=== PATIENT | male | born 1965 | race Caucasian/White ===

== ENCOUNTER 2018-10-25 07:01 | Emergency (ER) | payer MEDICAID ==
[~2018-10-25] VITALS: Ht 177.8 cm; Wt 83.9 kg
[2018-10-25] MEDS ORDERED: ALBUTEROL FS 2.5 MG/3 ML VIAL.NEB ONE (07:28)
[2018-10-25] MEDS ORDERED: IPRATROPIUM NEB FS 0.5 MG/2.5 ML AMPUL.NEB ONE (07:29)
[2018-10-25] MEDS ORDERED: ALBUTEROL FS 2.5 MG/3 ML VIAL.NEB NEB ONE ×2 (07:30→09:00)
[2018-10-25] MEDS ORDERED: LORAZEPAM 1 MG TABLET PO ONE ×2 (07:30→12:30)
[2018-10-25] MEDS ORDERED: predniSONE 20 MG TABLET PO ONE (07:30)
[2018-10-25] MEDS ORDERED: IPRATROPIUM NEB FS 0.5 MG/2.5 ML AMPUL.NEB NEB ONE (07:30)
[2018-10-25] MEDS ORDERED: ONDANSETRON 4 MG TAB.RAPDIS SL ONE (07:30)
[2018-10-25] MEDS ORDERED: PANTOPRAZOLE 80 MG in IV NS 0.9% 500 ML IV ONE (09:00)
[2018-10-25 09:15] LABS: BASOPHILS % (AUTO) 0.2 % (0.0-2.0); EOSINOPHILS % (AUTO) 0.4 % (0.0-6.0); HEMATOCRIT 49 % (39-51); HEMOGLOBIN 16.7 g/dL (13.5-17.5); LYMPHOCYTES # (AUTO) 0.7 /CMM (0.8-4.8); MEAN CORPUSCULAR HGB CONC 34 g/dl (31.0-36.0); MEAN CORPUSCULAR VOLUME 95 fL (80-96); MONOCYTES # (AUTO) 0.8 /CMM (0.1-1.30); MONOCYTES % (AUTO) 3.6 % (2.0-12.0); NEUTROPHILS # (AUTO) 20.9 /CMM (1.8-8.9); NEUTROPHILS % (AUTO) 92.8 % (43.0-81.0); PLATELET COUNT (AUTO) 213 /CMM (150-450); WHITE BLOOD COUNT (AUTO) 22.5 K/uL (4.3-11.0)
[2018-10-25] MEDS ORDERED: LORAZEPAM 1 MG TABLET ONE ×2 (09:18→12:51)
[2018-10-25] MEDS ORDERED: Magnesium 1GM/D5W 100ML PREMIX 100 ML IV ONE ×2 (09:18→10:25)
[2018-10-25] MEDS ORDERED: ONDANSETRON 4 MG TAB.RAPDIS ONE (09:19)
[2018-10-25] MEDS ORDERED: predniSONE 20 MG TABLET ONE (09:19)
[2018-10-25] MEDS: Magnesium 1GM/D5W 100ML PREMIX 100 ML IV SCH ×2 (09:21→10:26)
[2018-10-25 09:22] LABS: CALCIUM, SERUM 8.6 mg/dL (8.5-10.1); CREATININE 1.3 mg/dL (0.6-1.3); POTASSIUM 4.1 mmol/L (3.5-5.1)
--- NOTE | 2018-10-25 09:40 | NUR ---
PT BROUGHT IN FROM STREET FOR SOB OF SEVERAL DAYS PT ALERT AND ORIENTED SMELLS OF ETOH PIV PLACED MEDICATION GIVEN ORDERED WILL CONTINUE TO MONITOR
[2018-10-25 10:44] LABS: ALBUMIN 4.1 g/dL (3.4-5.0); BILIRUBIN,DIRECT 0.4 mg/dL (0.0-0.2); BILIRUBIN,TOTAL 1.7 mg/dL (0.2-1.0); TOTAL PROTEIN, SERUM 7.5 g/dL (6.4-8.2)
[2018-10-25] MEDS ORDERED: IV NS 0.9% 1,000 ML BAG IV ONE (11:00)
[2018-10-25] MEDS ORDERED: ONDANSETRON HCL/PF 4 MG/2 ML VIAL IV ONE (11:00)
[2018-10-25] MEDS ORDERED: ONDANSETRON HCL/PF 4 MG/2 ML VIAL ONE (11:20)
[2018-10-25 13:02] VITALS: BP 170/88
--- NOTE | 2018-10-25 13:02 | NUR ---
PT DISCHARGED TO HOME GIVEN PRESCRIPTIONS ACI AND ETOH ABUSE RESOURCES. PIV REMOVED WITH TIP INTACT. PT WILL FOLLOW UP WITH PCP
== END 2018-10-25 13:03 | disposition home or self-care (01) ==
LOC: ER 07:03
DX: J45.901 Unspecified asthma with (acute) exacerbation (principal); K70.9 Alcoholic liver disease, unspecified; E88.89 Other specified metabolic disorders; F10.20 Alcohol dependence, uncomplicated; E87.2 Acidosis; D72.829 Elevated white blood cell count, unspecified
CPT/HCPCS: 36415; 71045; 80048; 80076; 80307; 85025; 93005; 94644; 96365; 96366; 96368; 96375; 99285; C9113; J2405; J3475 ×2; J7030; J7040; J7512; Q0162; G0480

== ENCOUNTER 2018-10-27 03:59 | Emergency (ER) | payer MEDICAID ==
[~2018-10-27] VITALS: Ht 177.8 cm; Wt 90.7 kg
--- NOTE | 2018-10-27 04:05 | NUR ---
PT BIB RA WITH A C/O SOB, ETOH. PT IS HOMELESS. PT STATED THAT HE LIVES IN HIS CROSSNORE. PT IS ON THE MONITOR AND CONTINUOUS PULSE OX. PT'S O2 SAT ON RA IS 94%. PT IS ABLE TO SPEAK IN FULL SENTENCES.
[2018-10-27] MEDS ORDERED: DEXAMETHASONE SOD PHOSPHATE 10 MG/ML VIAL ONE (04:07)
[2018-10-27] MEDS ORDERED: IPRATROPIUM NEB FS 0.5 MG/2.5 ML AMPUL.NEB ONE (04:18)
[2018-10-27] MEDS ORDERED: ALBUTEROL FS 2.5 MG/3 ML VIAL.NEB ONE (04:18)
[2018-10-27] MEDS ORDERED: DEXAMETHASONE SOD PHOSPHATE 10 MG/ML VIAL IM ONE (04:30)
[2018-10-27] MEDS ORDERED: IPRATROPIUM NEB FS 0.5 MG/2.5 ML AMPUL.NEB NEB ONE (04:30)
[2018-10-27] MEDS ORDERED: ALBUTEROL FS 2.5 MG/3 ML VIAL.NEB NEB ONE (04:30)
[2018-10-27 04:32] VITALS: BP 140/74
--- NOTE | 2018-10-27 04:57 | NUR ---
Patient discharged to home in stable condition. Written and verbal after care instructions given. Patient verbalizes understanding of instruction AND RX. PT AMBULATED OUT WITH A STEADY GAIT. PT IS UPSET AND STATED THAT HE WAS NOT HOMELESS. PT ASKED FOR A TAXI.
[2018-10-27] MEDS ORDERED: ALBUTEROL SULFATE 8 GM HFA.AER.AD IH ONE (05:00)
[2018-10-28] MEDS ORDERED: BUDE10.2 INH (19:33)
[2018-10-28] MEDS ORDERED: ATOR80TA PO (19:33)
[2018-10-28] MEDS ORDERED: IPRA4AER IH (19:33)
[2018-10-28] MEDS ORDERED: ALBU18HF2 INH (19:33)
== END 2018-10-27 04:54 | disposition home or self-care (01) ==
LOC: ER 04:01
DX: J44.1 Chronic obstructive pulmonary disease with (acute) exacerbation (principal); F17.200 Nicotine dependence, unspecified, uncomplicated; Z59.0 Homelessness
CPT/HCPCS: 93005; 94640; 96372; 99283; J1100

== ENCOUNTER 2018-10-28 15:01 | Inpatient (IN) | payer MEDICAID ==
[~2018-10-28] VITALS: Ht 177.8 cm; Wt 89.9 kg
--- NOTE | 2018-10-28 15:08 | NUR ---
PT BIB[employer] AND [employer], IN CUSTODY FOR DUI, C/O WHEEZING, PT IS AAOX4, NOTED WHEEZING ON BILATERAL LUNG SAVAGE, KEPT RESTED AND COMFORTABLE, WILL CONTINUE TO MONITOR.
--- NOTE | 2018-10-28 15:18 | NUR ---
SEEN AND EXAMINED BY IKE CONTE
--- NOTE | 2018-10-28 15:25 | NUR ---
LABS DRAWNED AND SENT TO LAB.
[2018-10-28] MEDS ORDERED: methylPREDNISolone SOD SUCC 125 MG/2ML VIAL ONE (15:27)
[2018-10-28 15:29] LABS: BASOPHILS % (AUTO) 0.1 % (0.0-2.0); HEMATOCRIT 45 % (39-51); HEMOGLOBIN 15.1 g/dL (13.5-17.5); LYMPHOCYTES # (AUTO) 1.3 /CMM (0.8-4.8); LYMPHOCYTES % (AUTO) 6.5 % (20.0-44.0); MEAN CORPUSCULAR HGB CONC 34 g/dl (31.0-36.0); MEAN CORPUSCULAR VOLUME 95 fL (80-96); MONOCYTES # (AUTO) 1.3 /CMM (0.1-1.30); MONOCYTES % (AUTO) 6.3 % (2.0-12.0); NEUTROPHILS # (AUTO) 17.5 /CMM (1.8-8.9); NEUTROPHILS % (AUTO) 87.1 % (43.0-81.0); PLATELET COUNT (AUTO) 172 /CMM (150-450); RED BLOOD CELL COUNT(AUTO) 4.71 MIL/uL (4.5-6.0)
[2018-10-28] MEDS ORDERED: ALBUTEROL FS 2.5 MG/3 ML VIAL.NEB ONE (15:29)
[2018-10-28] MEDS ORDERED: IPRATROPIUM NEB FS 0.5 MG/2.5 ML AMPUL.NEB ONE (15:29)
[2018-10-28] MEDS ORDERED: IPRATROPIUM NEB FS 0.5 MG/2.5 ML AMPUL.NEB NEB ONE (15:30)
[2018-10-28] MEDS ORDERED: methylPREDNISolone SOD SUCC 125 MG/2ML VIAL IV ONE (15:30)
[2018-10-28] MEDS ORDERED: ALBUTEROL FS 2.5 MG/3 ML VIAL.NEB NEB ONE (15:30)
--- NOTE | 2018-10-28 15:30 | NUR ---
RT AT BEDSIDE FOR BREATHING TREATMENT.
[2018-10-28 15:35] LABS: CALCIUM, SERUM 8.6 mg/dL (8.5-10.1); CARBON DIOXIDE 25 mmol/L (21-32); CHLORIDE 94 mmol/L (98-107); CREATININE 1.1 mg/dL (0.6-1.3); GLUCOSE 197 mg/dL (74-106); POTASSIUM 3.8 mmol/L (3.5-5.1); SODIUM SERUM 134 mmol/L (136-145); UREA NITROGEN, BLOOD 11 mg/dL (7-18)
--- NOTE | 2018-10-28 15:45 | NUR ---
CALLED FOR FOOD TRAY
[2018-10-28 15:47] LABS: ALANINE AMINOTRANSFERASE 117 U/L (12-78); ALBUMIN 3.6 g/dL (3.4-5.0); ALKALINE PHOSPHATASE 86 U/L (46-116); ASPARTATE AMINOTRANSFERASE 84 U/L (15-37); B-TYPE NATRIURETIC PEPTIDE 317 PG/ML (0-125); BILIRUBIN,DIRECT 0.2 mg/dL (0.0-0.2); BILIRUBIN,TOTAL 0.5 mg/dL (0.2-1.0); TOTAL PROTEIN, SERUM 6.9 g/dL (6.4-8.2)
--- NOTE | 2018-10-28 16:44 | NUR ---
CALLED NURSING SUP. FOR TELE BED
--- NOTE | 2018-10-28 16:49 | NUR ---
ZAY PAGED, GI BROOKS MOTOR RUNNER AVIATION TECHNICIAN
--- NOTE | 2018-10-28 17:17 | NUR ---
GI BROOKS MASK DESIGNER AT BEDSIDE FOR EVAL.
--- NOTE | 2018-10-28 17:45 | NUR ---
REPORT GIVEN TO KAY ALLEN FOR MAMI.
--- NOTE | 2018-10-28 17:51 | NUR ---
RECEIVED REPORT FROM BYRON REGARDING PATIENT. PATIENT IS BEING ADMITTED TO TELEMETRY FLOOR BY GI BROOKS NP. AWAITING PATIENT'S ARRIVAL AT THIS TIME.
[2018-10-28] MEDS ORDERED: MAGNESIUM HYDROXIDE 30 ML UDC PO PRN (18:00)
[2018-10-28] MEDS ORDERED: MAG HYDROX/AL HYDROX/SIMETH 30 ML UDC PO PRN (18:00)
[2018-10-28] MEDS ORDERED: Z GUARD REMEDY 2 OZ OINT TP PRN (18:00)
[2018-10-28] MEDS ORDERED: LORAZEPAM INJ 2 MG/ML VIAL IV PRN (18:00)
[2018-10-28] MEDS ORDERED: ACETAMINOPHEN 325 MG TABLET PO PRN (18:00)
[2018-10-28] MEDS ORDERED: ONDANSETRON HCL/PF 4 MG/2 ML VIAL IVP PRN (18:00)
[2018-10-28] MEDS ORDERED: PIPERACILLIN /TAZOBACTAM 3.375 G in IV D5W 50 ML IV ONE (18:30)
--- NOTE | 2018-10-28 18:35 | NUR ---
BEVEL FACE STONER AND POLISHER NOTE RECEIVED PATIENT FROM ER. PATIENT IS BEING ADMITTED TO TELEMETRY FLOOR IN STABLE CONDITION, AMBLE TO INDEPENDENTLY TRANSFER FROM [facility] TO BED. VITAL SIGNS STABLE. IN NO APPARENT DISTRESS OR DISCOMFORT AT THIS TIME. RESPIRATIONS EVEN AND UNLABORED. DENIES PAIN AND SOB. PATIENT REPORTS FEELING ANXIOUS INSIDE. ABLE TO COMMUNICATE NEEDS. IV ACCESS PRESENT ON RIGHT HAND 18G, PATENT AND INTACT. PATIENT WAS MADE COMFORTABLE IN BED. SAFETY MEASURES APPLIED, BED IN LOW LOCKED POSITION, SIDE RAILS UP X2, ORIENTED TO CALL LIGHT AND ROOM. GI BROOKS NP WAS MADE AWARE OF PATIENT'S ARRIVAL. WILL ENDORSE TO PM NURSE FOR MAMI AND TO CARRY OUT ADMISSION ORDERS.
--- NOTE | 2018-10-28 19:00 | NUR ---
PER TODD LADD, KEEP PATENT NPO STARTING NOW. NOTED AND CARRIED OUT.
[2018-10-28] MEDS ORDERED: ALBU18HF2 INH (19:33)
[2018-10-28] MEDS ORDERED: ATOR80TA PO (19:33)
[2018-10-28] MEDS ORDERED: IPRA4AER IH (19:33)
[2018-10-28] MEDS ORDERED: BUDE10.2 INH (19:33)
--- NOTE | 2018-10-28 19:55 | NUR ---
MEDIA TRAFFIC MANAGER TELE NOTES RECEIVED PATIENT FROM [facility] [employer] FOR CONTINUATION OF ADMISSION PROCESS. PATIENT IS A/O X4. PATIENT IS ON TELE MONITOR WITH READING: SINUS TACH 110 AT THIS TIME. VITAL SIGNS UPON START OF SHIFT WAS BP 151/89, PULSE 112, RESPIRATORY RATE 19, TEMPERATURE 98.9, OXYGEN SATURATION 95. PATIENT DENIES PAIN AND SOB. PATIENT IS ABLE TO COMMUNICATE NEEDS. SAFETY PRECAUTIONS IMPLEMENTED: BED IN LOW LOCKED POSITION, SIDE RAILS UP X2, ORIENTED TO CALL LIGHT AND ROOM. WILL CONTINUE TO MONITOR PATIENT THROUGHOUT THE SHIFT.
--- NOTE | 2018-10-28 20:00 | NUR ---
RN NOTES: INVENTORY OF BELONGING COMPLETED BY NETO HERNANDEZ. PT HAS SHIRT (GARG COLOR), PANTS, BELT, BLACK SHOES. INFORMED PT HE'S NPO, PT AGREE, BUT WILL RECEIVE FLUIDS (IVF). SKIN ASSESSMENT PERFORMED, NOTED SACRAL WOUND, PARTIAL THICKNESS, PT REFUSED TO TAKE PHOTOS STATED ITS UNCOMFORTABLE AND UNEASY. NOTED SCRATCHED ON BILATERAL ARMS, PT CLAIMED HE GOT THIS FROM HIS CAT. ON SEIZURE PRECAUTIONS, SIDE RAILS PADDED, SUCTION SET UP SECURED, WILL CONTINUE MONITORING PT.
--- NOTE | 2018-10-28 20:02 | NUR ---
rn notes: oriented pt to unit policy, hourly rounding and use of call light system
[2018-10-28] MEDS: ALBUTEROL FS 2.5 MG/0.5 ML VIAL.NEB NEB SCH (20:04)
[2018-10-28] MEDS: IPRATROPIUM NEB FS 0.5 MG/2.5 ML AMPUL.NEB NEB SCH (20:04)
[2018-10-28] MEDS: Folic acid 1 MG in IV D5W 50 ML IV SCH (20:07)
[2018-10-28] MEDS: IV NS 0.9% 1,000 ML IV PRN (20:07)
--- NOTE | 2018-10-28 20:07 | NUR ---
LATE ADMIN FOLIC ACID IVPB: ADMINISTERING THE SAID MEDICATION AT THIS TIME, MEDICATION BROUGHT BY PHARMACY, DAY RN UNAVAILABLE TO ADMIN THE MED AT SCHEDULED TIME.
[2018-10-28 20:25] VITALS: BP 151/89
[2018-10-28] MEDS: Thiamine 100 MG in IV D5W 50 ML IV SCH (20:53)
[2018-10-28 21:06] VITALS: BP 152/87
--- NOTE | 2018-10-28 21:06 | NUR ---
RN/TELE NOTES PRN ATIVAN GIVEN. PATIENT EXPERIENCING AGITATION, TREMORS, SWEATING. CURRENT VITAL SIGNS: BP 152/87, PULSE 111, RESPIRATORY RATE 19, O2 STAT 95% CONNECTED PATIENT TO CONTINOUS OXIMETRY.
--- NOTE | 2018-10-28 21:50 | NUR ---
rn notes: pt's iv accidentally pulled out, removed and applied pressured dressing. reinserted new iv on left fa using g 20, good blood return noted, secured with transparent dressing and attached proper labels, connected back to ivf. also unable to give ativan as iv access got pulled out, prepared ativan 2mg just administered now. vs taken and recorded, pt connected back to continuous pulse oximetry, spo2 95% on 2l nc.
--- NOTE | 2018-10-28 22:17 | NUR ---
late admin of zosyn: medication administered late as day rn unable to give the said medicine at scheduled time. given thiamine and folic ivpb, also pt's iv access got pulled out, all this delays the administration of the said medication
[2018-10-28 22:19] VITALS: BP 152/89
[2018-10-29] VITALS: BP_SYST 159; BP_SYST 160; BP_DIAS 76; BP_DIAS 80
--- NOTE | 2018-10-29 01:15 | NUR ---
RN NOTES: RECEIVED CALL FROM FLASH DRIER OPERATOR AIRTO, STATED HR WENT UP TO 122, SINUS TACHYCARDIA, WENT TO CHECK ON THE PT, PT DENIES ANY HEAD ACHE, DIZZINESS OR LIGHT HEADEDNESS, DENIES ANY CHEST PAIN, ASYMPTOMATIC, ON 2L OXYGEN VIA NC, RESPIRATION EVEN AND UNLABORED, STILL CONNECTED TO PULSE OXIMETRY.
[2018-10-29 02:00] VITALS: BP 155/87
[2018-10-29] MEDS: ALBUTEROL FS 2.5 MG/0.5 ML VIAL.NEB NEB SCH ×4 (02:14→20:01)
[2018-10-29] MEDS: IPRATROPIUM NEB FS 0.5 MG/2.5 ML AMPUL.NEB NEB SCH ×4 (02:14→20:01)
--- NOTE | 2018-10-29 02:42 | NUR ---
PT REFUSED TO GO ON BIPAP. PT WANTS HOME BIPAP. RN AWARE Addendum: 10/29/18 at 0443 by EVELIO GRIFFITH RT Amended: Links added.
[2018-10-29 04:00] VITALS: BP 153/93
[2018-10-29] MEDS ORDERED: PIPERACILLIN /TAZOBACTAM 3.375 G VIAL IV ONE (04:48)
[2018-10-29] MEDS ORDERED: PIPERACILLIN /TAZOBACTAM 3.375 G in IV D5W 100 ML IV SCH (05:00)
[2018-10-29 06:52] LABS: CALCIUM, SERUM 8.7 mg/dL (8.5-10.1); CREATININE 1.1 mg/dL (0.6-1.3); POTASSIUM 4.2 mmol/L (3.5-5.1)
--- NOTE | 2018-10-29 07:02 | NUR ---
MS RN NOTES PATIENT IN BED ALERT ORIENTED X 4. NO ACUTE DISTRESS NOTED. BREATHING UNLABORED. IV ACCESS PATENT AND INTACT, NO REDNESS OR SWELLING NOTED. SAFETY MEASURES IN PLACE. CALL LIGHT WITHIN REACH. WILL CONTINUE TO MONITOR ACCORDINGLY.
[2018-10-29 07:07] LABS: BASOPHILS % (AUTO) 0.1 % (0.0-2.0); HEMATOCRIT 40 % (39-51); HEMOGLOBIN 13.9 g/dL (13.5-17.5); LYMPHOCYTES # (AUTO) 0.7 /CMM (0.8-4.8); MEAN CORPUSCULAR HGB CONC 35 g/dl (31.0-36.0); MEAN CORPUSCULAR VOLUME 95 fL (80-96); MONOCYTES # (AUTO) 0.6 /CMM (0.1-1.30); MONOCYTES % (AUTO) 3.9 % (2.0-12.0); NEUTROPHILS # (AUTO) 13.6 /CMM (1.8-8.9); PLATELET COUNT (AUTO) 126 /CMM (150-450)
[2018-10-29 07:18] LABS: THYROID STIMULATING HORMONE 0.228 uIU/mL (0.358-3.74)
--- NOTE | 2018-10-29 07:31 | NUR ---
RN CLOSING NOTES PATIENT IS IN BED, AWAKE. PATIENT IS A/O X 4. PATIENT HAS NO SIGNS OF RESPIRATORY DISTRESS. PATIENT DENIES PAIN. IV SITE: LEFT FOREARM G#20, PATENT AND INTACT. URINAL WITHIN REACH. SAFETY PRECAUTIONS IMPLEMENTED: CALL LIGHT WITHIN REACH, BED LOW, SIDERAILS UP X2, BED LOCKED. ON SEIZURE PRECAUTIONS, SIDE RAILS PADDED, SUCTION SET UP SECURED. WILL ENDORSE TO ONCOMING AM RN.
[2018-10-29 08:00] VITALS: BP 164/90
[2018-10-29] MEDS: NICOTINE PATCH (14MG) 14 MG PATCH.TD24 TD SCH (08:38)
[2018-10-29] MEDS ORDERED: methylPREDNISolone SOD SUCC 40 MG/ML VIAL IV ONE (09:00)
[2018-10-29] MEDS ORDERED: LORAZEPAM INJ 2 MG/ML VIAL IV PRN (10:00)
--- NOTE | 2018-10-29 10:03 | NUR ---
LOG HANDLING EQUIPMENT OPERATOR NOTES RECEIVED NEW ORDERS FROM SUPERVISOR COMMISSARY PRODUCTION GI BROOKS TO DISCONTINUE NPO MAY CHANGE TO CLEAR LIQUID DIET AND MAY ADMINISTER 9AM SCHEDULED LIBRIUM.NOTED AND CARRIED OUT.
[2018-10-29] MEDS: CHLORDIAZEPOXIDE HCL 5 MG CAPSULE PO SCH ×3 (10:08→17:26)
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
[2018-10-29] MEDS: PIPERACILLIN /TAZOBACTAM 3.375 G in IV D5W 100 ML IV SCH ×2 (13:01→20:36)
--- NOTE | 2018-10-29 14:37 | NUR ---
MS RN NOTES PATIENT POSITIVE FOR MRSA OF THE NARES. CONTACT ISOLATION IMPLEMENTED. NOTIFIED LIBERAL ARTS DEAN GI MYERS WITH NEW ORDERS FOR BACTROBAN OINTMENT 2%. NOTED AND CARRIED OUT. PATIENT MADE AWARE.
[2018-10-29 16:00] VITALS: BP 144/82
[2018-10-29] MEDS: MUPIROCIN OINT 2% 22 GM TUBE SCH ×2 (16:09→20:43)
[2018-10-29] MEDS ORDERED: Medication Not On Formulary EA (Budesonide/Formoterol Fumarate (Symbicort 160-4.5 Mcg In INH SCH (17:00)
[2018-10-29] MEDS: Thiamine 100 MG in IV D5W 50 ML IV SCH (17:23)
[2018-10-29] MEDS: CLOTRIMAZOLE 1% 15 GM TUBE TP SCH (17:29)
[2018-10-29] MEDS: Folic acid 1 MG in IV D5W 50 ML IV SCH (18:03)
--- NOTE | 2018-10-29 19:00 | NUR ---
MS RN NOTES PATIENT IN BED ALERT ORIENTED X 4. NO ACUTE DISTRESS NOTED. BREATHING UNLABORED. IV ACCESS PATENT AND INTACT, NO REDNESS OR SWELLING NOTED.DUE MEDICATIONS GIVEN, NO ASE NOTED. NEEDS ATTENDED AND ANTICIPATED. KEPT CLEAN DRY AND COMFORTABLE. ENCOURAGE TURNING AND REPOSTIONING EVERY [address] ME[address] PL[address] CALL LIGHT WITHIN REACH. ENDORSED TO NIGHT NURSE FOR CONTINUITY OF CARE.
--- NOTE | 2018-10-29 19:30 | NUR ---
MS RN NOTES RECEIVED LAYING COMFORTABLY ON BED,A/0 X4,CONVERSANT,VERBALIZED NEEDS,IVF NS AT 75ML/HR RATE IN PROGRESS ON LEFT FORE ARM,SITE PATENT.NOTED LEFT ARM ABRASIONS,SACRAL REDNESS WITH DRESSING INTACT AND DRY,ABLE TO REPOSITION SELF,ISOLATION PRECAUTION FOR MRSA NARES,ON BACTROBAN.CALL LIGHT IN REACH,NEEDS ANTICIPATED.
[2018-10-29 20:00] VITALS: BP 132/68
--- NOTE | 2018-10-29 20:01 | NUR ---
MS RN NOTES RT AT BEDSIDE ADMINISTERING BREATHING TREATMENT SCHEDULED.
--- NOTE | 2018-10-30 01:30 | NUR ---
MS RN NOTES AWAKE,HAVING BREATHING TREATMENT SCHEDULED.
[2018-10-30] MEDS: ALBUTEROL FS 2.5 MG/0.5 ML VIAL.NEB NEB SCH ×4 (01:48→20:07)
[2018-10-30] MEDS: IPRATROPIUM NEB FS 0.5 MG/2.5 ML AMPUL.NEB NEB SCH ×4 (01:48→20:07)
[2018-10-30] MEDS: PIPERACILLIN /TAZOBACTAM 3.375 G in IV D5W 100 ML IV SCH ×2 (05:09→13:14)
--- NOTE | 2018-10-30 06:26 | NUR ---
MS RN NOTES RESTING COMFORTABLY ON BED,NO SOB,IV ABX IN PROGRESS AT 25ML/HR VIA IV PUMP.DENIES ANY DISCOMFORTS AT THIS TIME.BED ON LOWEST POSITION AND LOCKED.CALL LIGHT IN REACH,NEEDS ATTENDED.WILL ENDORSE TO DAY NURSE FOR MAMI.
--- NOTE | 2018-10-30 07:30 | NUR ---
MS/RN Patient received Patient received from shift foreman. A/O X4, vital signs stable, appears in no distress at this time. All needs attended, time allowed for all questions and concerns to be addressed. Call light within reach, will continue to monitor and ensure safety.
[2018-10-30 08:00] VITALS: BP_SYST 152; BP_DIAS 79; BP_DIAS 89
[2018-10-30] MEDS: NICOTINE PATCH (14MG) 14 MG PATCH.TD24 TD SCH (08:42)
[2018-10-30] MEDS: MUPIROCIN OINT 2% 22 GM TUBE SCH (08:43)
[2018-10-30] MEDS: CLOTRIMAZOLE 1% 15 GM TUBE TP SCH ×2 (08:44→17:16)
--- NOTE | 2018-10-30 08:55 | NUR ---
MS/animal laboratory technician Morning medications administered as ordered, no difficulty swallowing. RT at bedside for breathing treatment.
[2018-10-30] MEDS ORDERED: ATORVASTATIN 40 MG TABLET PO SCH (09:00)
[2018-10-30] MEDS ORDERED: FLUTICASONE/VILANTEROL 1 EACH BLST.W.DEV IH SCH (09:00)
[2018-10-30] MEDS: CHLORDIAZEPOXIDE HCL 5 MG CAPSULE PO SCH ×3 (09:13→17:15)
[2018-10-30] MEDS: Magnesium 1GM/D5W 100ML PREMIX 100 ML IV SCH ×2 (10:53→11:51)
[2018-10-30] MEDS: IV NS 0.9% 1,000 ML IV PRN (11:00)
--- NOTE | 2018-10-30 11:00 | NUR ---
MS/RN S/B Dr Ramírez Seen by Dr Ramírez - to continue with bronchodilators. Magnesium 2gm ordered to be administered IV as patient states that he has had a good result from this in the past.
[2018-10-30] MEDS ORDERED: THIAMINE HCL 100 MG TABLET PO SCH (12:00)
[2018-10-30] MEDS ORDERED: FOLIC ACID 1 MG TABLET PO SCH (12:00)
--- NOTE | 2018-10-30 13:00 | NUR ---
MS/RN S/B Homa Monge TOOL ENGINEER Seen by TOOL ENGINEER - discharge planning for tomorrow.
[2018-10-30 15:56] VITALS: BP 128/69
[2018-10-30 16:00] VITALS: BP 128/69
--- NOTE | 2018-10-30 17:15 | NUR ---
MS/RN Ativan Ativan 2mg given for signs of alcohol withdrawal. Will monitor and maintain safety.
--- NOTE | 2018-10-30 18:14 | NUR ---
MS/RN End note Patient remains in stable condition, all needs addressed, will endorse to security shift supervisor.
--- NOTE | 2018-10-30 19:30 | NUR ---
MS RN NOTES RECEIVED LAYING CONFORTABLY ON BED,A/O X4,SAYING HE NEEDS TO BE OUT OF HERE TOMORROW MORNING AT 10 AM ,THAT HE'S GOING TO [place].WITH SALINE LOCK LEFT FORE ARM INTACT AND PATENT.DRESSING TO SACRAL AREA INTACT AND DRY.WILL CONTINUE TO MONITOR STATUS.
--- NOTE | 2018-10-30 19:50 | NUR ---
MS RN NOTES NETO HERNANDEZ INFORMED NURSE ASSIGNED THAT PATIENT WANTS TO LEAVE NOW AND WILLING TO SIGN LEAVING AGAINST MEDICAL ADVICE
--- NOTE | 2018-10-30 19:55 | NUR ---
MS RN NOTES WENT IN TO THE ROOM AND NOTED PATIENT ALREADY DRESS UP,EXPLAINED RISK AND BENEFITS OF LEAVING AGAINST MEDICAL ADVICE,BUT HE STILL INSIST.
--- NOTE | 2018-10-30 20:00 | NUR ---
MS RN NOTES PATIENT SIGNED FORM AGAINST MEDICAL ADVICE THIS TIME.
--- NOTE | 2018-10-30 20:15 | NUR ---
MS KAY NOTES SALINE LOCK WAS REMOVED,PATIENT ID BAND REMOVED WELL.
[2018-10-30 20:21] VITALS: BP 134/89
--- NOTE | 2018-10-30 20:22 | NUR ---
MS RN NOTES EPIC GRINDING MACHINE TENDER WAS PAGE REGARDING PATIENT PLAN OF GOING AMA,AWAITING TO CALL BACK
--- NOTE | 2018-10-30 20:35 | NUR ---
MS RN NOTES STEP OUT OF THE UNIT ACCOMPANIED BY NETO HERNANDEZ DOWN TO THE LOBBY.CHARGE NURSE CALL TAXI [facility] [id number] TRANSPORT PER PATIENT REQUEST
--- NOTE | 2018-10-30 20:45 | NUR ---
MS RN NOTES DR MAYEN CALLED BACK,[facility] MECHANICAL EQUIPMENT SALES ENGINEER,INFORMED ABOUT PATIENT REGARDING THIS PATIENT WENT ON AMA.
== END 2018-10-30 20:35 | disposition left against medical advice (07) | DRG 137 ==
LOC: ER 15:01 → TELE 17:27 → MED 10-29 10:46
PROVIDERS: ADMIT Registered Nurse; ATTEND Registered Nurse
DX: J69.0 Pneumonitis due to inhalation of food and vomit (principal); J45.901 Unspecified asthma with (acute) exacerbation; J44.0 Chronic obstructive pulmonary disease with (acute) lower respiratory infection; F10.129 Alcohol abuse with intoxication, unspecified; J44.1 Chronic obstructive pulmonary disease with (acute) exacerbation; Y90.7 Blood alcohol level of 200-239 mg/100 ml; Z59.0 Homelessness; R73.9 Hyperglycemia, unspecified; R74.0 Nonspecific elevation of levels of transaminase and lactic acid dehydrogenase [LDH]; F17.210 Nicotine dependence, cigarettes, uncomplicated; J20.9 Acute bronchitis, unspecified; D72.829 Elevated white blood cell count, unspecified; T38.0X5A Adverse effect of glucocorticoids and synthetic analogues, initial encounter
CPT/HCPCS: 36415; 70220-TC; 71045-TC; 80048-TC; 80061-TC; 80076-TC; 83735-TC; 83880; 84100-TC; 84443-TC; 84484-TC; 85025-TC; 87081-TC; 94799-TC; A6253; A6402; A6403; G0378; G0480; J2060; J2543; J2920; J2930; J3411; J3475; J3490; J7030; J7050; J7060

== ENCOUNTER 2020-05-17 23:10 | Emergency (ER) | payer MEDICAID ==
[~2020-05-17] VITALS: Ht 177.8 cm; Wt 81.6 kg
[~2020-05-17 23:10] MED LIST: ALBU18HF2 INH; ATOR80TA PO; BUDE10.2 INH; IPRA4AER IH
[2020-05-17 23:12] VITALS: BP 135/91
[2020-05-17] MEDS ORDERED: IPRATROPIUM NEB FS 0.5 MG/2.5 ML AMPUL.NEB ONE (23:50)
[2020-05-17] MEDS ORDERED: ALBUTEROL FS 2.5 MG/0.5 ML VIAL.NEB ONE (23:50)
[2020-05-18] MEDS ORDERED: ALBUTEROL FS 2.5 MG/3 ML VIAL.NEB NEB ONE
[2020-05-18] MEDS ORDERED: IPRATROPIUM NEB FS 0.5 MG/2.5 ML AMPUL.NEB NEB ONE
== END 2020-05-18 00:30 | disposition home or self-care (01) ==
LOC: ER 23:15
DX: J45.909 Unspecified asthma, uncomplicated (principal); F17.200 Nicotine dependence, unspecified, uncomplicated; Z79.899 Other long term (current) drug therapy
CPT/HCPCS: 71045-TC